=== PATIENT | male | born 1985 | race Caucasian/White ===

== ENCOUNTER → 2021-07-12 | Outpatient (CLI) | payer OTHER ==
--- NOTE | 2021-07-13 01:29 | MR ---
EXAMINATION TYPE: MR elbow LT wo con DATE OF EXAM: 07/12/2021 COMPARISON: None HISTORY: Left elbow pain x 4 weeks S/P weight lifting injury. MRI scan of the left elbow performed without contrast. There is elbow joint effusion. There is complete tear of the triceps tendon from the olecranon proces s of the ulna. There is fluid accumulation around the tendon. Radial head is intact. The brachialis tendon and biceps tendon appear intact. Muscle bundles appear i ntact. There is some retraction of the triceps muscle. I see no bony destructive process. No evidence of a fracture. The collateral ligaments are intact. IMPRESSION: Complete tear of the triceps tendon with retraction of the muscle. Fluid accumulation around the tend on. Mild elbow joint effusion.
== END | disposition home or self-care (01) ==
LOC: RADMRIMAIN 19:01
PROVIDERS: ATTEND Orthopaedic Surgery
DX: S56.812A Strain of other muscles, fascia and tendons at forearm level, left arm, initial encounter (principal); M25.422 Effusion, left elbow; X58.XXXA Exposure to other specified factors, initial encounter